=== PATIENT | female | born 1960 | race Caucasian/White ===

== ENCOUNTER → 2020-09-15 | Outpatient (CLI) | payer OTHER ==
[~2020-09-15] MED LIST: DICLOFENAC SODI75 MG PO; LODINE CAP 300300 MG PO; LYSINE500 MG PO; NORFLEX 100 MG100 MG PO; OMNICEF 300 MG300 MG PO; PRAVASTATIN SOD80 MG PO; PROTONIX 40 MG40 M1 PO; STOOL SOFTENER100 M1 PO; TESSALON PERLE100 MG PO; ULTRAM50 MG PO; VITAMIN D32000 UNI1 PO; ZOFRAN ODT 4 MG4 MG SL
== END ==
LOC: KOH-I 11:38
DX: R05 Cough (principal)
CPT/HCPCS: 71046

== ENCOUNTER → 2020-11-23 | Outpatient (CLI) | payer OTHER | LOC: LBRF 16:13 | DX: N39.0 Urinary tract infection, site not specified (principal) | CPT/HCPCS: 87077; 87086; 87186 ==

== ENCOUNTER → 2021-10-31 | Outpatient (CLI) | payer MEDICARE ==
[~2021-10-31] VITALS: Ht 165.1 cm; Wt 109.3 kg
== END ==
LOC: OPSV 14:52
DX: S32.000A Wedge compression fracture of unspecified lumbar vertebra, initial encounter for closed fracture (principal); M81.0 Age-related osteoporosis without current pathological fracture
CPT/HCPCS: 96372

== ENCOUNTER → 2021-11-10 | Outpatient (CLI) | payer MEDICARE | LOC: ECHO 12:00 → NM 13:00 | DX: R07.89 Other chest pain (principal); R53.83 Other fatigue; E78.5 Hyperlipidemia, unspecified; E66.9 Obesity, unspecified; I10 Essential (primary) hypertension; R94.39 Abnormal result of other cardiovascular function study | CPT/HCPCS: ECHO; 78452; 93017; 93306; A9502 ==

== ENCOUNTER → 2021-11-29 | Outpatient (CLI) | payer MEDICARE | LOC: KOH-I 11:37 | DX: M54.50 Low back pain, unspecified (principal); M47.816 Spondylosis without myelopathy or radiculopathy, lumbar region | CPT/HCPCS: 72110 ==

== ENCOUNTER → 2021-12-21 | Outpatient (CLI) | payer MEDICARE | LOC: KOH-I 10:07 | DX: C85.10 Unspecified B-cell lymphoma, unspecified site (principal); M54.16 Radiculopathy, lumbar region; M48.07 Spinal stenosis, lumbosacral region; M48.061 Spinal stenosis, lumbar region without neurogenic claudication | CPT/HCPCS: 72148 ==